=== PATIENT | female | born 1975 | race Asian ===

== ENCOUNTER → 2016-06-17 | Outpatient (CLI) | payer BC ==
--- NOTE | 2016-06-17 12:03 | MA ---
Screening Digital Mammogram With iCAD Analysis Clinical Indications: Routine screening. Technique: Standard cephalocaudal and mediolateral oblique projections are obtained. This examination is processed by the iCAD computer aided detection system. Comparison: June 2015, November 2010, May 2010, April 2010. Breast density: Type B; Scattered fibroglandular densities. Findings: CAD was reviewed. No masses, suspicious calcifications or other signs of malignancy are see n. There has been no significant change in the appearance of either breast. Impression: Negative mammogram. BI-RADS 1. Recommendation: Routine mammographic screening in one year as long as physical examination is negativ e. [facility] will send a result letter to the patient. Negative mammography should not preclude additional workup of a clinically suspicious finding. The patient's information is entered into a reminder system with a target due date for her next mammo gram.
== END ==
LOC: CIMAGING 10:10
DX: Z12.31 Encounter for screening mammogram for malignant neoplasm of breast (principal)
CPT/HCPCS: G0202

== ENCOUNTER → 2017-06-18 | Outpatient (CLI) | payer BC | LOC: CIMAGING 14:27 | DX: Z12.31 Encounter for screening mammogram for malignant neoplasm of breast (principal) ==

== ENCOUNTER → 2017-06-24 | Outpatient (CLI) | payer BC | LOC: CIMAGING 12:46 | PROVIDERS: ATTEND Obstetrics & Gynecology | DX: D25.9 Leiomyoma of uterus, unspecified (principal) | CPT/HCPCS: 76856-PO ==

== ENCOUNTER 2017-09-17 10:13 | Emergency (ER) | payer BC ==
[2017-09-17] MEDS ORDERED: OXYCODONE/APAP 5/325 TAB PO ONE (10:44)
--- NOTE | 2017-09-17 10:46 | EDPHY ---
H & P Stated Complaint: syncope Time Seen by Provider: 09/17/17 10:31 HPI/ROS: CHIEF COMPLAINT: Right buttock pain post mechanical fall HISTORY OF PRESENT ILLNESS: 41-year-old female arrives via private vehicle complaining of acute right buttock and lumbar spine pain. She describes that yesterday afternoon she was carirying a heavy box, was running through the house and slipped landing on her right buttock. This was not a syncopal episode. The triage note states syncopal episode however patient states that she did not experience syncope and that this was a mechanical fall. She is complaining of right buttock and lumbar pain ever since. No radicular symptoms. No straddle injury. No saddle anesthesia. No foot drop. No incontinence or retention. No head injury. No urinary abnormality. REVIEW OF SYSTEMS: A ten point review of systems was performed and is negative with the exception of the items mentioned in the HPI PAST MEDICAL/SURGICAL HISTORY: no anticoagulant use, lumbar microdiskectomy 20 years ago SOCIAL HISTORY: denies alcohol use at time of incident PHYSICAL EXAM 1) GENERAL: Well-developed, well-nourished, alert and oriented. Appears uncomfortable. Answering questions appropriately. 2) HEAD: Normocephalic, atraumatic 3) HEENT: Pupils equal, round, reactive to light bilaterally. Negative Horners. Nasopharynx, oropharynx, clear. No deformity or angulation of nose. No septal hematoma. No rhinorrhea. No oral trauma. Ears bilaterally with normal tympanic membranes. No hemotympanum. No fluid or blood in the external auditory canal. No raccoon eyes. No Cueto sign. Teeth are normally aligned with no gross malocclusion, TMJ bilaterally nontender, facial bones nontender including the zygomatic arch, maxilla mandible. 4) NECK: No cervical collar is on. Posterior cervical spine is nontender, no stepoff, no effusion. Full range of motion which does not elicit any midline cervical spine pain, no posterior midline tenderness, no step-off. 5) LUNGS: Clear to auscultation bilaterally, no wheezes, no rhonchi, no retractions. No obvious signs of trauma. No chest wall pain. No flaring, no grunting. Moving symmetrically. No crepitus. 6) HEART: Regular rate and rhythm, 7) ABDOMEN: No guarding, no rebound, no focal tenderness, no peritoneal signs, no signs of trauma, no ecchymosis 8) MUSCULOSKELETAL: Tender to palpation right buttock. Soft compartments. No visible trauma such as ecchymosis or abrasion or laceration. No shortening or malrotation of the lower extremities. Moving all extremities, no focal areas of tenderness, no obvious trauma. Patella and Achilles reflexes intact to bilateral strength 5/5. No foot drop. 9) BACK: Lumbar surgical scar noted. Difficulty fully differentiate true midline versus just lateral of midline lumbar pain. No visible signs of trauma. No midline vertebral tenderness, no fluctuance, no step-off, no obvious trauma, no visual or palpable abnormality. 10) SKIN: No laceration. No abrasion DIFFERENTIAL DIAGNOSIS: In no particular include but limited to lumbar fracture , pelvic fracture, sacral fracture - Personal History LMP (Females 10-55): Now Current Tetanus/Diphtheria Vaccine: Yes Current Tetanus Diphtheria and Acellular Pertussis (TDAP): Yes - Medical/Surgical History Hx Asthma: No Hx Chronic Respiratory Disease: No Hx Diabetes: No Hx Cardiac Disease: No Hx Renal Disease: No Hx Cirrhosis: No Hx Alcoholism: No Hx HIV/AIDS: No Hx Splenectomy or Spleen Trauma: No Other PMH: hypothyroid, depression - Social History Smoking Status: Never smoked Constitutional: Initial Vital Signs Temperature (C) 37.1 C 09/17/17 10:23 Heart Rate 91 09/17/17 10:23 Respiratory Rate 16 09/17/17 10:23 Blood Pressure 142/93 H 09/17/17 10:23 O2 Sat (%) 97 09/17/17 10:23 O2 Delivery Mode Room Air Allergies/Adverse Reactions: erythromycin base [Erythromycin Base] Allergy (Unknown, Verified 07/14/09 12:55) UNK Penicillins Allergy (Unknown, Verified 07/14/09 12:55) UNK amoxicillin Allergy (Verified 09/17/17 10:22) Home Medications: Medication Instructions Recorded Ativan 09/17/17 Cyclobenzaprine [Flexeril 10 MG 10 mg PO TID #10 tab 09/17/17 (RX)] Meloxicam 09/17/17 Probiotic 09/17/17 Synthroid 09/17/17 Vitamin B Complex 09/17/17 Zantac 09/17/17 oxyCODONE/APAP 5/325 [Percocet 1 tab PO Q6 #10 tab 09/17/17 5/325] Medical Decision Making - Diagnostics Imaging Results: Imaging Impressions Lumbar Spine X-Ray 09/17/17 10:43 Impression: Nothing acute identified. 2. AP Pelvis History: Pain, fall yesterday Comparison: None Findings: The pelvic ring is intact. The SI joints, hip joints and pubic symphysis look normal. Rectal gas obscures the medial right superior pubic ramus. Overall mineralization is normal. Impression: No fracture identified. 3. Sacrum and Coccyx, 3 views History: Pain, fall yesterday Comparison: None Findings: No sacral or coccygeal abnormality is identified. The SI joints are normal. Impression: No fracture. Pelvis X-Ray 09/17/17 10:43 Impression: Nothing acute identified. 2. AP Pelvis History: Pain, fall yesterday Comparison: None Findings: The pelvic ring is intact. The SI joints, hip joints and pubic symphysis look normal. Rectal gas obscures the medial right superior pubic ramus. Overall mineralization is normal. Impression: No fracture identified. 3. Sacrum and Coccyx, 3 views History: Pain, fall yesterday Comparison: None Findings: No sacral or coccygeal abnormality is identified. The SI joints are normal. Impression: No fracture. Sacrum and Coccyx X-Ray 09/17/17 10:43 Impression: Nothing acute identified. 2. AP Pelvis History: Pain, fall yesterday Comparison: None Findings: The pelvic ring is intact. The SI joints, hip joints and pubic symphysis look normal. Rectal gas obscures the medial right superior pubic ramus. Overall mineralization is normal. Impression: No fracture identified. 3. Sacrum and Coccyx, 3 views History: Pain, fall yesterday Comparison: None Findings: No sacral or coccygeal abnormality is identified. The SI joints are normal. Impression: No fracture. Images reviewed by myselff ED Course/Re-evaluation: 10:46 a.m.: Will obtain imaging of the lumbar, pelvic region and re-evaluate. Care of patient under supervision of primary Supervising physician Dr Early. 12:05 p.m.: Re-evaluation, discussed the imaging results. Discussed limitations of imaging. She is neurologically intact lower extremities. The - Data Points Medications Given: Discontinued Medications Oxycodone/Acetaminophen (Percocet 5/325) 1 tab PO EDNOW ONE Stop: 09/17/17 10:45 Last Admin: 09/17/17 12:10 Dose: Not Given Departure - Departure Disposition: Home, Routine, Self-Care Clinical Impression: Acute buttock pain Condition: Good Instructions: Muscle Strain (ED) Additional Instructions: Seek medical attention if you develop new or worsening pain, if you develop bladder or bowel dysfunction, numbness around your perineum, foot drop, or any other symptoms that concern you. Referrals: Thuan Rosales MD [Medical Doctor] - 2-3 days, call for appt. Prescriptions: Cyclobenzaprine [Flexeril 10 MG (RX)] 10 mg PO TID #10 tab oxyCODONE/APAP 5/325 [Percocet 5/325] 1 tab PO Q6 #10 tab
[2017-09-17 12:15] VITALS: BP 135/78
== END 2017-09-17 12:14 | disposition home or self-care (01) ==
DX: S39.92XA Unspecified injury of lower back, initial encounter (principal); W18.39XA Other fall on same level, initial encounter; Y92.009 Unspecified place in unspecified non-institutional (private) residence as the place of occurrence of the external cause; Y99.8 Other external cause status; Y93.02 Activity, running

== ENCOUNTER → 2018-07-15 | Outpatient (CLI) | payer BC | LOC: CIMAGING 14:41 | PROVIDERS: ATTEND Obstetrics & Gynecology | DX: Z12.31 Encounter for screening mammogram for malignant neoplasm of breast (principal) ==